=== PATIENT | female | born 1955 | race Asian ===

== ENCOUNTER 2018-08-04 14:39 | Inpatient (IN) | payer OTHER ==
[2018-08-04] MEDS ORDERED: Sodium Chloride 0.9% 10 ML Syringe FLUSH PRN (18:30)
[2018-08-04] MEDS ORDERED: Estradiol 0.5 MG Tab PO PRN (19:52)
[2018-08-04] MEDS ORDERED: tiZANidine 4 MG Tab PO PRN (19:52)
[2018-08-04] MEDS: Docusate Sodium 100 MG Cap PO SCH (20:31)
[2018-08-04] MEDS: Gabapentin 100 MG Cap PO SCH (20:31)
[2018-08-04] MEDS: Acetaminophen 500 MG Tab PO PRN ×2 (20:32→23:49)
[2018-08-04] MEDS: oxyCODONE 5 MG Tab PO PRN (23:47)
[2018-08-05] MEDS: oxyCODONE 5 MG Tab PO PRN ×4 (05:34→23:34)
--- NOTE | 2018-08-05 08:14 | PCM.HP ---
H&P History of Present Illness - General Date of Service: 08/05/18 Admit Problem/Dx: Admission Diagnosis/Problem Admission Diagnosis/Problem Lumbar radiculopathy Source of Information: Patient, RN History Limitations: Reports: No Limitations Lumbar Pain Score (Numeric/FACES): 5 - Related Data Allergies/Adverse Reactions: Allergies Allergy/AdvReac Type Severity Reaction Status Date / Time No Known Allergies Allergy Verified 08/04/18 19:16 Home Medications: Home Meds Acetaminophen [Acetaminophen Extra Strength] 500 mg PO Q4HR PRN 08/04/18 [ History] Aspirin [Halfprin] 81 mg PO DAILY 08/04/18 [History] Cholecalciferol (Vitamin D3) [Vitamin D3] 2,000 unit PO DAILY 08/04/18 [History] Docusate Sodium [Colace] 100 mg PO BID 08/04/18 [History] Estradiol [Estrace] 0.5 mg PO ASDIRECTED PRN 08/04/18 [History] Gabapentin [Neurontin] 100 mg PO BID@0900,1400 08/04/18 [History] Gabapentin [Neurontin] 200 mg PO BEDTIME 08/04/18 [History] oxyCODONE 5 - 10 mg PO Q4HR PRN 08/04/18 [History] tiZANidine [Zanaflex] 2 mg PO TID PRN 08/04/18 [History] Celecoxib 200 mg PO DAILY PRN 08/06/18 [History] Losartan [Cozaar] 50 mg PO DAILY 08/06/18 [History] atorvaSTATin [Lipitor] 10 mg PO DAILY 08/06/18 [History] H&P Review of Systems - Review of Systems: Review Of Systems: See Below General: Reports: Malaise. Denies: Diaphoresis HEENT: Reports: No Symptoms Pulmonary: Reports: No Symptoms Cardiovascular: Reports: Blood Pressure Problem Gastrointestinal: Denies: Abdominal Pain, Constipation, Distension, Nausea, Vomiting Genitourinary: Reports: No Symptoms Musculoskeletal: Reports: Back Pain, Muscle Stiffness Skin: Denies: Bruising Psychiatric: Denies: Confusion Neurological: Reports: Difficulty Walking. Denies: Confusion, Paresthesia Immunologic: Reports: No Symptoms Exam - Exam Exam: See Below - Vital Signs Vital Signs: Last Vital Signs Temp 98.5 F 08/05/18 05:48 Pulse 90 08/05/18 05:48 Resp 16 08/05/18 05:48 BP 100/58 L 08/05/18 05:48 Pulse Ox 99 08/05/18 05:48 Weight: 145 lb 12.8 oz - Exam Quality Assessment: No: Supplemental Oxygen General: Alert, Oriented. No: Mild Distress, Sedated HEENT: Hearing Intact, TMs Clear, Other (Lips dry, patchy tongue, slight hematoma left side of tongue likely due to ET tube) Neck: Supple. No: Lymphadenopathy Lungs: Clear to Auscultation, Normal Respiratory Effort Cardiovascular: Regular Rate, Regular Rhythm, Normal S1, Normal S2 GI/Abdominal Exam: Soft, Other (Slightly decreased bowel tones) (Female) Exam: Deferred Peripheral Pulses: 2+: Radial (L), Radial (R) Skin: Warm, Dry, Intact Neurological: Normal Speech, Normal Tone Neuro Extensive - Mental Status: Alert, Oriented x3, Normal Mood/Affect Neuro Extensive - Motor, Sensory, Reflexes: No: Receptive Aphasia, Facial palsy (L), Facial Palsy (R) Psychiatric: Alert, Normal Affect, Normal Mood - Patient Data Result Diagrams: 08/05/18 11:35 Problem List Initiated/Reviewed/Updated: Yes Orders Last 24hrs: Active Orders 24 hr Category Date Time Status Patient Status [ADT] Routine ADT 08/04/18 18:00 Ordered Ambulate [RC] ASDIRECTED Care 08/04/18 18:30 Active Ambulate [RC] ASDIRECTED Care 08/04/18 18:30 Active Antiembolic Devices [RC] PER UNIT ROUTINE Care 08/04/18 18:57 Active Communication Order [RC] DAILY Care 08/05/18 09:00 Active Communication Order [RC] DAILY Care 08/05/18 09:00 Active Communication Order [RC] DAILY Care 08/05/18 09:00 Active Communication Order [RC] DAILY Care 08/05/18 09:00 Active Height and Weight [RC] PER UNIT ROUTINE Care 08/04/18 18:55 Active Intake and Output [RC] 1400,2200,0600 Care 08/04/18 18:30 Active Oxygen Therapy [RC] PRN Care 08/04/18 18:53 Active Up to Chair [RC] ASDIRECTED Care 08/04/18 18:30 Active Vital Signs [RC] 0700,1900 Care 08/04/18 18:53 Active PT Evaluation and Treatment [CONS] Routine Cons 08/04/18 18:30 Active Regular Diet [DIET] Diet 08/05/18 Breakfast Active Acetaminophen [Tylenol Extra Strength] Med 08/04/18 19:52 Active 500 mg PO Q4HR PRN Aspirin [Halfprin] Med 08/05/18 09:00 Active 81 mg PO DAILY Cholecalciferol (Vitamin D3) [Vitamin D3] Med 08/05/18 09:00 Active 2,000 units PO DAILY Docusate Sodium [Colace] Med 08/04/18 21:00 Active 100 mg PO BID Estradiol Med 08/04/18 19:52 Active 0.5 mg PO Q72H PRN Gabapentin [Neurontin] Med 08/05/18 09:00 Active 100 mg PO 0900,1400 Gabapentin [Neurontin] Med 08/04/18 21:00 Active 200 mg PO BEDTIME Sodium Chloride 0.9% [Saline Flush] Med 08/04/18 18:30 Active 10 ml FLUSH Q8HR PRN oxyCODONE Med 08/04/18 19:52 Active 5 - 10 mg PO Q4HR PRN tiZANidine [Zanaflex] Med 08/04/18 19:52 Active 2 mg PO TID PRN Saline Lock Insert [OM.PC] Routine Oth 08/04/18 18:30 Ordered Sequential Compression Device [OM.PC] Routine Oth 08/04/18 18:30 Ordered Resuscitation Status Routine Resus Stat 08/04/18 18:30 Ordered Medication Orders Acetaminophen (Tylenol Extra Strength) 500 mg PO Q4HR PRN PRN Reason: mild pain Last Admin: 08/04/18 23:49 Dose: 500 mg Admin: 08/04/18 20:32 Dose: 500 mg Aspirin (Halfprin) 81 mg PO DAILY KULWINDER Cholecalciferol (Vitamin D3) 2,000 units PO DAILY KULWINDER Docusate Sodium (Colace) 100 mg PO BID KULWINDER Last Admin: 08/04/18 20:31 Dose: 100 mg Estradiol (Estradiol) 0.5 mg PO Q72H PRN PRN Reason: symptoms of menopause Gabapentin (Neurontin) 100 mg PO 0900,1400 KULWINDER Gabapentin (Neurontin) 200 mg PO BEDTIME KULWINDER Last Admin: 08/04/18 20:31 Dose: 200 mg Oxycodone HCl (Oxycodone) 5 - 10 mg PO Q4HR PRN PRN Reason: Pain Last Admin: 08/05/18 05:34 Dose: 10 mg Admin: 08/04/18 23:47 Dose: 5 mg Sodium Chloride (Saline Flush) 10 ml FLUSH Q8HR PRN PRN Reason: keep vein open Tizanidine HCl (Zanaflex) 2 mg PO TID PRN PRN Reason: Muscle Spasm Last Admin: 08/04/18 23:48 Dose: 2 mg Assessment/Plan Comment:: History of present illness Patient was transferred from [facility] into [facility] as she is status post L4-5 Transforaminal Lumbar Intebody Fusion (TLIF) that she underwent urgently. Her pain is acceptable at this time however [facility], [place], Patient was admitted for lumbar surgery with L4-5 fusion on 07/31. She did have quite a bit of pain and difficulty with ambulation post op and PT recommend low intensity therapies which she will receive and PT prior to returning to her home. Primary hospital problems Status post Lumbar radiculopathy s/p L4-5 fusion DOS (07/31/18), TLSO when OOB or HOB >30 degrees Pain management, acetaminophen when necessary, oxycodone up to 35 MME for now Post-operative anemia, will check hemoglobin today, May need oral iron Secondary problems HTN:Blood pressure low, holding ARB HLD, holding statin therapy as she is not taking this, unknown if statin benefit group at this time S/p menopause can restart Estradiolas she will begin ambulation today, will add DVT prophylaxis Prophylactic measures --VTE, score of Risk of 3, add LMWH, SCDs (avoid TEDS) ambulation, --OIC prophylaxis, patient refusing opioid antagonist at this time, will monitor closely PT goals Follow up cares, Neurosurgeon,
[2018-08-05] MEDS: Gabapentin 100 MG Cap PO SCH ×3 (08:46→21:01)
[2018-08-05] MEDS: Docusate Sodium 100 MG Cap PO SCH ×2 (08:46→21:01)
[2018-08-05] MEDS: Cholecalciferol (Vitamin D3) 1,000 Unit Tab PO SCH (08:46)
[2018-08-05] MEDS: Aspirin 81 MG Tab.EC PO SCH (08:46)
[2018-08-05] MEDS: Enoxaparin 40 MG/0.4 ML Syringe SUBCUT SCH (13:07)
[2018-08-05] MEDS: Polyethylene Glycol 3350 Powder 17 GM Packet PO SCH (13:07)
[2018-08-06] MEDS: oxyCODONE 5 MG Tab PO PRN ×4 (04:55→22:31)
[2018-08-06] MEDS: Gabapentin 100 MG Cap PO SCH ×3 (08:58→20:52)
[2018-08-06] MEDS: Docusate Sodium 100 MG Cap PO SCH ×2 (08:58→20:52)
[2018-08-06] MEDS: Cholecalciferol (Vitamin D3) 1,000 Unit Tab PO SCH (08:58)
[2018-08-06] MEDS: Aspirin 81 MG Tab.EC PO SCH (08:58)
[2018-08-06] MEDS: Polyethylene Glycol 3350 Powder 17 GM Packet PO SCH (08:59)
[2018-08-06] MEDS: Enoxaparin 40 MG/0.4 ML Syringe SUBCUT SCH (11:12)
[2018-08-06] MEDS: Acetaminophen 500 MG Tab PO PRN ×3 (11:13→22:31)
[2018-08-06] MEDS: Iron Polysaccharides Complex 150 MG Cap PO SCH (11:15)
[2018-08-07] MEDS: oxyCODONE 5 MG Tab PO PRN ×2 (05:03→13:25)
[2018-08-07] MEDS: Acetaminophen 500 MG Tab PO PRN ×3 (05:03→21:15)
[2018-08-07] MEDS: Iron Polysaccharides Complex 150 MG Cap PO SCH (10:03)
[2018-08-07] MEDS: Docusate Sodium 100 MG Cap PO SCH ×2 (10:03→21:22)
[2018-08-07] MEDS: Gabapentin 100 MG Cap PO SCH ×3 (10:03→21:22)
[2018-08-07] MEDS: Cholecalciferol (Vitamin D3) 1,000 Unit Tab PO SCH (10:03)
[2018-08-07] MEDS: Aspirin 81 MG Tab.EC PO SCH (10:03)
[2018-08-07] MEDS: Polyethylene Glycol 3350 Powder 17 GM Packet PO SCH (10:04)
[2018-08-07] MEDS: Enoxaparin 40 MG/0.4 ML Syringe SUBCUT SCH (11:31)
[2018-08-08] MEDS: oxyCODONE 5 MG Tab PO PRN (06:55)
[2018-08-08] MEDS: Acetaminophen 500 MG Tab PO PRN ×2 (06:58→17:00)
[2018-08-08] MEDS: Aspirin 81 MG Tab.EC PO SCH (09:03)
[2018-08-08] MEDS: Cholecalciferol (Vitamin D3) 1,000 Unit Tab PO SCH (09:03)
[2018-08-08] MEDS: Docusate Sodium 100 MG Cap PO SCH ×2 (09:04→21:20)
[2018-08-08] MEDS: Polyethylene Glycol 3350 Powder 17 GM Packet PO SCH (09:04)
[2018-08-08] MEDS: Gabapentin 100 MG Cap PO SCH ×3 (09:04→21:14)
[2018-08-08] MEDS: Iron Polysaccharides Complex 150 MG Cap PO SCH (09:04)
[2018-08-09] MEDS: Acetaminophen 500 MG Tab PO PRN ×3 (06:08→21:55)
[2018-08-09] MEDS: Cholecalciferol (Vitamin D3) 1,000 Unit Tab PO SCH (08:51)
[2018-08-09] MEDS: Iron Polysaccharides Complex 150 MG Cap PO SCH (08:52)
[2018-08-09] MEDS: Docusate Sodium 100 MG Cap PO SCH ×2 (08:52→21:53)
[2018-08-09] MEDS: Aspirin 81 MG Tab.EC PO SCH (08:52)
[2018-08-09] MEDS: Polyethylene Glycol 3350 Powder 17 GM Packet PO SCH (08:52)
[2018-08-09] MEDS: Gabapentin 100 MG Cap PO SCH ×3 (08:52→21:53)
[2018-08-10] MEDS: Acetaminophen 500 MG Tab PO PRN (06:11)
[2018-08-10] MEDS: Gabapentin 100 MG Cap PO SCH ×2 (09:10→14:10)
[2018-08-10] MEDS: Aspirin 81 MG Tab.EC PO SCH (09:10)
[2018-08-10] MEDS: Iron Polysaccharides Complex 150 MG Cap PO SCH (09:10)
[2018-08-10] MEDS: Cholecalciferol (Vitamin D3) 1,000 Unit Tab PO SCH (09:10)
[2018-08-10] MEDS: Polyethylene Glycol 3350 Powder 17 GM Packet PO SCH (10:42)
[2018-08-10] MEDS: Docusate Sodium 100 MG Cap PO SCH (10:42)
--- NOTE | 2018-08-11 08:53 | DISCH ---
ADMITTING DIAGNOSIS: Status post L4-L5 transforaminal lumbar interbody fusion performed on 07/31/2018. DISCHARGE DIAGNOSIS: Status post L4-L5 transforaminal lumbar interbody fusion performed on 07/31/2018, improving. BRIEF HISTORY AND ESSENTIAL PHYSICAL FINDINGS: This is a very pleasant female, who was admitted to the hospital in swing bed status after having lumbar surgery. The patient had L4-L5 transforaminal lumbar interbody fusion on 07/31/2018. The patient was admitted for physical therapy and rehab. The patient was having quite a bit of pain after surgery and she was having difficulty walking with the amount of pain. She was admitted for physical therapy prior to going home and pain management. SIGNIFICANT LABS XRAYS AND CONSULTATION FINDINGS: The patient had a CBC performed on , which showed white count within normal range at 8.7, hemoglobin 9.6. No further imaging or x-rays were obtained during hospitalization. COURSE IN HOSPITAL WITH COMPLICATIONS IF ANY: The patient was in quite a bit of pain when she was admitted. She had seen Physical Therapy and was given oxycodone as needed for pain. The patient did improve with her exercises and her pain. Her pain on discharge was well managed. She was up walking in the [place] with a walker without any assistance. The patient's joyce were removed by Dr. Will Tarango on 08/10/2018. CONDITION TREATMENT AND FINAL DISPOSITION ON DISCHARGE AND PROGNOSIS: Condition is stable. Final disposition will be home with her . IMPRESSION: Status post L4-L5 transforaminal lumbar interbody fusion performed on 07/31/2018. This surgery was done urgently due to pain and numbness and loss sensation partially to her lower extremities. PLAN: The patient will go home with a TLSO brace that she needs to wear when she is up out of bed or with the head of bed greater than 30 degrees. She can go home with oxycodone 5 mg tablet. She can take as needed for pain. She also can take some Zanaflex for muscle spasms, 2 mg t.i.d. p.r.n. She is also on gabapentin to help with pain. She takes 100 mg in the morning, she also takes 100 mg at 2 in the afternoon and she takes 200 mg at bedtime. The patient seems to be doing well, walking the halls on her own. She will follow up in clinic next week with Dr. Dodge. /[id number]/MODL MTDD
== END 2018-08-10 17:00 | disposition home or self-care (01) | DRG 945 ==
LOC: KA.MS 17:49
PROVIDERS: ADMIT Physician Assistant Medical; ATTEND Family Medicine
PROC: F07Z5ZZ Bed Mobility Treatment (ICD-10-PCS; principal; 2018-08-05)
PROC: F07Z8ZZ Transfer Training Treatment (ICD-10-PCS; 2018-08-05)
PROC: F07M6ZZ Therapeutic Exercise Treatment of Musculoskeletal System - Whole Body (ICD-10-PCS; 2018-08-05)
PROC: F07 Physical Rehabilitation and Diagnostic Audiology, Rehabilitation, Motor Treatment (ICD-10-PCS; 2018-08-05)
DX: G89.18 Other acute postprocedural pain (principal); D62 Acute posthemorrhagic anemia; I10 Essential (primary) hypertension; E78.5 Hyperlipidemia, unspecified; Z98.1 Arthrodesis status; Z79.82 Long term (current) use of aspirin; Z79.899 Other long term (current) drug therapy
CPT/HCPCS: 36415; 85027; 97110-GP; 97161-GP; 97530-GP; A9270-GY; J1650